=== PATIENT | male | born 1960 | race Caucasian/White ===

== ENCOUNTER 2020-09-30 09:13 | Inpatient (IN) ==
[2020-09-30] MEDS ORDERED: LACTULOSE 20 GM/30 ML ORAL.SOL PO PRN (12:08)
[2020-09-30] MEDS ORDERED: oxyCODONE HCL 5 MG TABLET PO PRN (12:08)
[2020-09-30] MEDS ORDERED: SENNOSIDES 1 TABLET PO PRN (12:08)
[2020-09-30] MEDS ORDERED: NALOXONE HCL 0.4 MG/ML VIAL IV PRN (12:08)
[2020-09-30] MEDS ORDERED: ONDANSETRON 4 MG/2 ML VIAL IV PRN (12:08)
[2020-09-30] MEDS ORDERED: HYDROmorphone 0.5 MG/0.5 ML SYRINGE IV PRN (12:08)
--- NOTE | 2020-09-30 12:09 | Internal Med History&Physical ---
HPI History of Present Illness Patient information: Note initiated : 09/30/20 at 12:08 pm Service Date, if different from initiated Date: [] Patient: Jacob Muñoz 60 y/o M admitted on 09/30/20 for choleducolithiasis. Chief Complaint: [] History of present illness: Mr. Muñoz is a 60 year old male with a history of heart failure with reduced ejection fraction, atrial fibrillation, diabetes mellitus type 2, GERD, recent laparoscopic cholecystectomy on September 18, 2020 followed several days later by recurrent abdominal pain reminiscent of biliary colic, fevers and generally feeling unwell. The patient was admitted to [facility] due to concerns of sepsis, the patient was also found to have acute pancreatitis. The patient was started on Zosyn and IV fluids. Attempts to transfer the patient to a higher level of care were unsuccessful due to the lack of bed capacity in the region. Patient was ultimately transferred to [facility] for GI intervention for concern of cholangitis. Patient arrived in stable condition. Review of systems Constitutional: Positive for fevers and chills Eyes: no vision changes or pain Cardiovascular: no chest pain, no palpitations Respiratory: no cough or dyspnea Gastrointestinal: Positive for epigastric abdominal pain, nausea Genitourinary: no dysuria or difficulty voiding Musculoskeletal: no arthralgia or myalgia Integumentary: no skin lesion or wound Neurological: no focal weakness or numbness Psychiatric: no anxiety or depression Physical exam Head: Atraumatic, normal inspection. Eyes: normal appearance, no scleral icterus. Neck: full ROM Respiratory: no respiratory distress. Cardiovascular: normal rate and rhythm, S1, S2. GI/Abdominal: Obesely distended, laparoscopy incisions appear to be healing well, good bowel sounds, mild epigastric tenderness, mild rebound tenderness Extremities: full range of motion, nontender. Neurological: CN II-XII intact, intact motor, intact sensation. Psychiatric: normal mood. Skin: warm, normal color MEDS/ALLERGIES Home Medications and Allergies Home Medications Medication Instructions Recorded Confirmed Type aspirin 81 mg PO QAM 09/30/20 09/30/20 History atorvastatin 80 mg PO QPM 09/30/20 09/30/20 History dabigatran etexilate 150 mg PO BID 09/30/20 09/30/20 History docusate sodium 200 mg PO BID 09/30/20 09/30/20 History hydrocodone-acetaminophen 5 - 325 mg PO Q4HP PRN 09/30/20 09/30/20 History metformin 500 mg PO BID 09/30/20 09/30/20 History metoprolol succinate [Toprol XL] 50 mg PO BID 09/30/20 09/30/20 History nitroglycerin [Nitrostat] 0.4 mg SUBLINGUAL QDP PRN 09/30/20 09/30/20 History omeprazole 20 mg PO DAILY 09/30/20 09/30/20 History ondansetron 4 mg PO Q6H PRN 09/30/20 09/30/20 History oxycodone 5 mg PO Q4H PRN 09/30/20 09/30/20 History promethazine 25 mg PO Q6HP PRN 09/30/20 09/30/20 History sacubitril-valsartan 49 - 51 mg PO BID 09/30/20 09/30/20 History Allergies Allergy/AdvReac Type Severity Reaction Status Date / Time No Known Drug Allergies Allergy Verified 09/30/20 10:56 EXAM Constitutional Vitals: Temp Resp BP Pulse Ox 98.7 F 16 140/77 100 09/30/20 11:34 09/30/20 11:34 09/30/20 11:34 09/30/20 11:34 A/P Narrative A/P Narrative: Assessment: 60 year old male with a history of heart failure with reduced ejection fraction, coronary artery disease status post stent, atrial fibrillation, diabetes mellitus type 2, GERD, recent laparoscopic cholecystectomy on September 18, 2020 followed several days later by fevers and recurrent abdominal pain found to have cytosis and acute pancreatitis at [facility] clinically concerning for cholangitis. The patient was unable to transfer to a higher level of care due to lack of bed capacity in the region therefore transferred to [facility] for GI consultation and intervention. #Probable cholangitis #Acute pancreatitis, likely d/t gallstones #HFrEF, stable #CAD status post stent, stable #Atrial fibrillation rate controlled and usually anticoagulated with Pradaxa -Held Pradaxa for several days prior to admission #Diabetes mellitus type 2 #Status post AICD #Obesity Plan -Zosyn 4.5 mg IV every 6 for probable cholangitis. -Follow-up outside blood cultures ([facility]). -GI consult for consideration of ERCP. -Analgesics prn. -Continue home Toprol and Entresto with holding parameters, continue atorvastatin and prilosec. -Holding home Pradaxa, aspirin, Metformin. -SSIlow -Monitor volume status, consider IV fluids with close monitoring. -Review outside records. -Serial abdominal exams,. -N.p.o. for now, low sodium diabetic diet when ok to eat. -Telemetry -Status: Full -Disposition: Home Time Spent With Patient Time: Total time spent is greater than 50% in coordination of care (as documented) at patient's floor/unit and/or counseling patient: QUALITY VTE Deep Vein Thrombosis/Pulmonary Embolism Present on Admission: No
--- NOTE | 2020-09-30 12:48 | Internal Medicine Consult Note ---
HPI Data of Consult Primary Care Provider: Neelam Nazario Consult Narrative Patient Information: Note initiated : 09/30/20 at 12:42 pm Service Date, if different from initiated Date: [] Patient: Jacob Muñoz 60 y/o M admitted on 09/30/20 for choledocholithiasis. 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 He began to have symptoms of biliary colic in August and ultimately underwent laparoscopic cholecystectomy by Dr. Galaviz at [facility] in [place], [place] 09/19/2019. I do not have that direct record to review, but apparently no IOPs were obtained. He felt better for one day post op, but then began to have recurrent attacks of biliary colic. Three days ago, he began to have worsening upper abdominal pain, fever (t 102.4) and jaundice and presented to [facility] ED, where his lipase was elevated at 1255, direct bilirubin 3.3, AST/ASLT 103/105, ALP 262 with leukocytosis 17,800. He was transferred for consideration of ERCP but has had improvement in abdominal pain since receiving Zosyn overnight. CT showed no definite biliary dilatation but US suggested a mildly dilated CBD (less than 10mm). Uncomplicated pancreatitis seen on CT. He is unable to undergo MRCP due to a history of ICD placement. He is a former smoker, having quit in 2016. He denies alcohol use. He denies any new medications.Significant other, Arabella, is at the bedside. PMH: atrial fibrillation, CHF, DM, CAD with stent, sleep apnea, hyperlipidemia. History of [place]. PSH: laprascopic cholecystectomy, ICD placement, coronary stent. cc:: CC: Kulwant Padilla MD Review of Systems All systems: reviewed and no additional remarkable complaints except as stated PFSH PFSH All Active Problems (Updated 09/30/20 @ 12:50 by PIETRO Melendez) Cholangitis (Acute) Acute pancreatitis (Acute) Medical History (Updated 09/30/20 @ 12:50 by PIETRO Melendez) Atrial fibrillation Coronary artery disease Diabetes mellitus HFrEF (heart failure with reduced ejection fraction) Obesity MEDS/ALLERGIES Home Medications and Allergies Home Medications Medication Instructions Recorded Confirmed Type aspirin 81 mg PO QAM 09/30/20 09/30/20 History atorvastatin 80 mg PO QPM 09/30/20 09/30/20 History dabigatran etexilate 150 mg PO BID 09/30/20 09/30/20 History docusate sodium 200 mg PO BID 09/30/20 09/30/20 History hydrocodone-acetaminophen 5 - 325 mg PO Q4HP PRN 09/30/20 09/30/20 History metformin 500 mg PO BID 09/30/20 09/30/20 History metoprolol succinate [Toprol XL] 50 mg PO BID 09/30/20 09/30/20 History nitroglycerin [Nitrostat] 0.4 mg SUBLINGUAL QDP PRN 09/30/20 09/30/20 History omeprazole 20 mg PO DAILY 09/30/20 09/30/20 History ondansetron 4 mg PO Q6H PRN 09/30/20 09/30/20 History oxycodone 5 mg PO Q4H PRN 09/30/20 09/30/20 History promethazine 25 mg PO Q6HP PRN 09/30/20 09/30/20 History sacubitril-valsartan 49 - 51 mg PO BID 09/30/20 09/30/20 History Allergies Allergy/AdvReac Type Severity Reaction Status Date / Time No Known Drug Allergies Allergy Verified 09/30/20 10:56 EXAM Constitutional Vitals: Temp Pulse Resp BP Pulse Ox 98.7 F 94 H 18 120/82 96 09/30/20 11:34 09/30/20 11:37 09/30/20 12:01 09/30/20 12:01 09/30/20 12:01 Head Head exam: Present atraumatic, normal inspection and normocephalic Eye Eye exam: Present scleral icterus Pupils: Present normal accommodation Neck Neck exam: Present normal inspection Respiratory Respiratory exam: Present normal respiratory exam and CTAB Cardiovascular Cardiovascular exam: Present irregular rhythm GI/Abdominal GI/Abdominal exam: Present normal bowel sounds and tenderness; Absent organomegaly Psychiatric Psychiatric exam: Present normal affect and normal mood Skin Additional comments: jaundiced A/P Assessment and plan (1) Cholangitis: Status: Acute (2) Acute pancreatitis: Status: Acute Comment: I reviewed his case with Dr. Lo. We will proceed with ERCP with stone extraction. I reviewed this in detail with the patient and his significant other, using an illustration. We discussed the risk of bleeding, perforation, pancreatitis, infection, among others. He is willing to proceed. Time Spent With Patient Time: Total time spent is greater than 50% in coordination of care (as documented) at patient's floor/unit and/or counseling patient:
[2020-09-30] MEDS: PIPERACILLIN SODIUM/TAZOBACTAM 4.5 GM in DEXTROSE 5% IN WATER 50 ML IV SCH ×3 (13:07→23:53)
[2020-09-30 13:18] LABS: Hematocrit 39.8 % (41.0-55.0); Hemoglobin 12.8 g/dL (13.5-16.5); Mean Cell Volume 92.3 fL (80.0-100.0); Mean Corpuscular HGB Conc 32.2 g/dL (31.0-36.0); Mean Platelet Volume 11.5 fL (7.4-10.4); Platelet Count 204 K/mcL (140-440); RBC 4.31 M/mcL (4.50-5.90); Red Cell Distribution Width 13.3 % (11.5-14.5); WBC 7.5 K/mcL (4.5-11.0)
[2020-09-30] MEDS ORDERED: PROPOFOL 200 MG/20 ML VIAL IV ONE (13:33)
[2020-09-30] MEDS ORDERED: NITROGLYCERIN 0.6 MG/HR PATCH TD ONE (13:35)
[2020-09-30] MEDS ORDERED: LACTATED RINGERS 1,000 ML IV SCH (13:45)
[2020-09-30 13:47] LABS: ALT/SGPT 134 U/L (<40); AST/SGOT 82 U/L (<40); Albumin 3.6 gm/dL (3.2-5.2); Albumin/Globulin Ratio 1.1 (1.0-2.3); Alkaline Phosphatase 302 U/L (39-117); Bilirubin,Total 3.7 mg/dL (0.1-1.0); Blood Urea Nitrogen 10 mg/dL (6-20); Carbon Dioxide 26 mmol/L (22-30); Chloride 101 mmol/L (96-108); Globulin 3.2 gm/dL (2.2-3.7); Glomerular Filtration Rate 81; Glucose 107 mg/dL (70-105)
[2020-09-30] MEDS: 0.9 % SODIUM CHLORIDE 10 ML SYRINGE IV SCH ×2 (14:16→22:19)
[2020-09-30] MEDS ORDERED: GENTAMICIN SULFATE 80 MG/2 ML VIAL IR ONE (15:00)
[2020-09-30] MEDS ORDERED: MIDAZOLAM 2 MG/2 ML VIAL IV ONE (15:00)
[2020-09-30 15:10] LABS: Eosinophils % (Manual) 2 % (0-7); Lymphocytes % 7 % (15-49); Monocytes % (Manual) 4 % (1-12); Platelet Estimate NORMAL (Normal); RBC Morphology NORMAL (Normal); Segmented Neutrophils % 87 % (38-78)
[2020-09-30] MEDS ORDERED: IOPAMIDOL 50 ML BOTTLE IJ ONE (15:38)
[2020-09-30] MEDS: ACETAMINOPHEN 325 MG TABLET PO PRN (20:38)
[2020-09-30] MEDS ORDERED: ATORVASTATIN 40 MG TABLET PO SCH (21:00)
[2020-09-30] MEDS: DOCUSATE SODIUM 100 MG CAPSULE PO SCH (22:18)
[2020-09-30] MEDS: METOPROLOL SUCCINATE 50 MG TAB.XL.24H PO SCH (22:18)
[2020-09-30] MEDS: SACUBITRIL VALSARTAN PO SCH (22:19)
[2020-10-01] MEDS: PIPERACILLIN SODIUM/TAZOBACTAM 4.5 GM in DEXTROSE 5% IN WATER 50 ML IV SCH ×4 (05:49→23:48)
[2020-10-01] MEDS: 0.9 % SODIUM CHLORIDE 10 ML SYRINGE IV SCH ×3 (05:49→21:16)
[2020-10-01 06:12] LABS: Basophils # (Auto) 0.03 K/mcL (0.00-0.20); Basophils % (Auto) 0.3 % (0.0-2.0); Eosinophils # (Auto) 0.02 K/mcL (0.00-0.70); Eosinophils % (Auto) 0.2 % (0.0-7.0); Hematocrit 34.1 % (41.0-55.0); Hemoglobin 11.3 g/dL (13.5-16.5); Lymphocytes # (Auto) 0.88 K/mcL (1.50-4.80); Lymphocytes % (Auto) 9.3 % (15.0-49.0); Mean Cell Volume 89.5 fL (80.0-100.0); Mean Corpuscular HGB Conc 33.1 g/dL (31.0-36.0); Mean Platelet Volume 11.4 fL (7.4-10.4); Monocytes # (Auto) 0.77 K/mcL (0.10-0.90); Monocytes % (Auto) 8.1 % (1.0-12.0); Neutrophils % (Auto) 82.1 % (38.0-78.0); Platelet Count 210 K/mcL (140-440); RBC 3.81 M/mcL (4.50-5.90); Red Cell Distribution Width 13.2 % (11.5-14.5); WBC 9.5 K/mcL (4.5-11.0)
[2020-10-01 06:24] LABS: ALT/SGPT 93 U/L (<40); AST/SGOT 49 U/L (<40); Albumin 3.1 gm/dL (3.2-5.2); Albumin/Globulin Ratio 1.1 (1.0-2.3); Alkaline Phosphatase 254 U/L (39-117); Amylase 140 U/L (28-100); Bilirubin,Total 1.9 mg/dL (0.1-1.0); Blood Urea Nitrogen 12 mg/dL (6-20); Calcium 8.5 mg/dL (8.6-10.4); Carbon Dioxide 27 mmol/L (22-30); Chloride 99 mmol/L (96-108); Globulin 2.7 gm/dL (2.2-3.7); Glomerular Filtration Rate 72; Glucose 110 mg/dL (70-105)
[2020-10-01] MEDS ORDERED: OMEPRAZOLE 20 MG CAPSULE PO SCH (07:30)
[2020-10-01] MEDS: ACETAMINOPHEN 325 MG TABLET PO PRN (07:46)
--- NOTE | 2020-10-01 08:34 | ERCP Procedure Note ---
ERCP Procedure Note Procedure Information Patient information: Note initiated : 10/01/20 at 8:32 am Service Date: 09/30/20 Patient: Jacob Muñoz 60 y/o M admitted on 09/30/20 for Choledocholithiasis. Pre-op diagnosis general: Query common bile duct stone. Post-op diagnosis general: Passed common bile duct stone. Procedure: ERCP Procedure narrative: The procedures, alternatives and risks were discussed with the patient and the patient's questions were answered. With endoscopist-administered intravenous sedation, the Olympus side viewing operating duodenoscope was introduced into the esophagus and advanced to the second part of the duodenum without difficulty. The ampulla of Vater was visualized and the bile duct was selectively cannulated taking care to avoid the pancreatic duct and cholangiogram obtained. The bile duct was normal. The bile duct was swept with a balloon. No stones were seen. The scope was withdrawn. Assessment: Passed common bile duct stone.
[2020-10-01] MEDS: METOPROLOL SUCCINATE 50 MG TAB.XL.24H PO SCH ×2 (09:01→21:15)
[2020-10-01] MEDS: DOCUSATE SODIUM 100 MG CAPSULE PO SCH ×2 (09:02→21:16)
[2020-10-01] MEDS ORDERED: DEXTROSE 50% 50 ML VIAL IV PRN ×3 (09:57→11:59)
[2020-10-01] MEDS ORDERED: DEXTROSE 31 GM ORAL.SUSP PO PRN ×3 (09:57→11:59)
[2020-10-01] MEDS: SACUBITRIL VALSARTAN PO SCH ×2 (10:11→21:21)
[2020-10-01] MEDS ORDERED: SENNOSIDES 1 TABLET PO PRN ×2 (10:37→11:59)
[2020-10-01] MEDS ORDERED: ACETAMINOPHEN 325 MG TABLET PO PRN ×2 (10:37→11:59)
[2020-10-01] MEDS ORDERED: NALOXONE HCL 0.4 MG/ML VIAL IV PRN ×2 (10:37→11:59)
[2020-10-01] MEDS ORDERED: HYDROmorphone 0.5 MG/0.5 ML SYRINGE IV PRN ×2 (10:37→11:59)
[2020-10-01] MEDS ORDERED: ONDANSETRON 4 MG/2 ML VIAL IV PRN ×2 (10:37→11:59)
[2020-10-01] MEDS ORDERED: oxyCODONE HCL 5 MG TABLET PO PRN ×2 (10:37→11:59)
[2020-10-01] MEDS ORDERED: LACTULOSE 20 GM/30 ML ORAL.SOL PO PRN ×2 (10:37→11:59)
[2020-10-01] MEDS ORDERED: INSULIN LISPRO 1 UNIT/0.01 ML UNIT SQ SCH ×2 (11:30)
--- NOTE | 2020-10-01 11:49 | Internal Med Progress Note ---
SUBJECTIVE Subjective Patient information: Note initiated : 10/01/20 at 11:46 am Service Date, if different from initiated Date: [] Patient: Jacob Muñoz 60 y/o M admitted on 09/30/20 for choleducolithiasis. Chief Complaint: [] Interval history: Mr. Muñoz is a 60 year old male with a history of heart failure with reduced ejection fraction, atrial fibrillation, diabetes mellitus type 2, GERD, recent laparoscopic cholecystectomy on September 18, 2020 followed several days later by recurrent abdominal pain reminiscent of biliary colic, fevers and generally feeling unwell. The patient was admitted to [facility] due to concerns of sepsis, the patient was also found to have acute pancreatitis. The patient was started on Zosyn and IV fluids. Attempts to transfer the patient to a higher level of care were unsuccessful due to the lack of bed capacity in the region. Patient was ultimately transferred to [facility] for GI intervention for concern of cholangitis. Patient arrived in stable condition. 10/01 ERCP yesterday-no stone seen. Fever yesterday evening after ERCP-blood cultures drawn. Continues on Zosyn, feeling much better, abdominal pain has improved considerably, advanced to full liquid diet. Resume home Dabigatran. Review of systems: chills and fever yesterday, abdominal pain has resolved Physical exam Head: Atraumatic, normal inspection. Eyes: normal appearance, no scleral icterus. Neck: full ROM Respiratory: no respiratory distress. Cardiovascular: normal rate and rhythm, S1, S2. GI/Abdominal: Obesely distended, laparoscopy incisions appear to be healing well, good bowel sounds, epigastric tenderness resolved Extremities: full range of motion, nontender. Neurological: CN II-XII intact, intact motor, intact sensation. Psychiatric: normal mood. Skin: warm, normal color Constitutional Vitals: Vital Signs Temp Pulse Resp BP Pulse Ox 97.9 F 90 17 127/79 99 10/01/20 08:01 10/01/20 08:01 10/01/20 08:01 10/01/20 08:01 10/01/20 08:01 Period Temp Pulse Resp BP Sys/Allen Pulse Ox Last 24 Hr 97.8 F-103.3 F 42-111 11-30 66-162/58-132 89-100 Intake and Output 09/30/20 10/01/20 10/01/20 21:59 05:59 13:59 Intake Total 725 570 290 Output Total 550 700 Balance 175 -130 290 Weight 104.19 kg Intake & Output: Intake & Output 09/30/20 10/01/20 10/01/20 21:59 05:59 13:59 Intake Total 725 570 290 Output Total 550 700 Balance 175 -130 290 Weight 104.19 kg Intake: IV 525 50 50 Lactated Ringers 1,000 ml @ 125 425 mls/hr IV .Q8H EVELYNE Rx#: [id number] Zosyn 4.5 gm In Dextrose 5% in 100 50 50 Water 50 ml @ 100 mls/hr IV Q6H EVELYNE Rx#:[id number] Oral 200 520 240 Output: Void Amount 550 700 Other: Meal Breakfast Percent of Meal Consumed 100% Urine Appearance Clear Clear Urine Color Dark Nati Tea Colored # Bowel Movements 1 OBJ DATA Labs CBC & Chem 7: 10/01/20 05:07 10/01/20 05:07 Labs: Abnormal Lab Results 10/01/20 10/01/20 09/30/20 05:07 05:07 12:40 RBC 3.81 L Hgb 11.3 L Hct 34.1 L MPV 11.4 H Neut % (Auto) 82.1 H Lymph % (Auto) 9.3 L Lymph # (Auto) 0.88 L Seg Neutrophils % Lymphocytes % Glucose 110 H 107 H Calcium 8.5 L Total Bilirubin 1.9 H 3.7 H AST 49 H 82 H ALT 93 H 134 H Alkaline Phosphatase 254 H 302 H Total Protein 5.8 L Albumin 3.1 L Amylase 140 H Lipase 1108 H 09/30/20 12:40 RBC 4.31 L Hgb 12.8 L Hct 39.8 L MPV 11.5 H Neut % (Auto) Lymph % (Auto) Lymph # (Auto) Seg Neutrophils % 87 H Lymphocytes % 7 L Glucose Calcium Total Bilirubin AST ALT Alkaline Phosphatase Total Protein Albumin Amylase Lipase Meds: Medications Acetaminophen (Acetaminophen 325 Mg Tablet) 650 mg PO Q6HP PRN; Protocol PRN Reason: Per Pain Protocol/Fever > 101 Atorvastatin Calcium (Atorvastatin 40 Mg Tablet) 80 mg PO HS EVELYNE Dextrose (Dextrose 50% 50 Ml Vial) 0 ml IV UD PRN PRN Reason: Hypoglycemia Diagnostic Test (Pha) (Accu-Chek 1 Each Strip) 1 each FS ACHS EVELYNE Last Admin: 10/01/20 11:42 Dose: 1 each Documented by: Docusate Sodium (Docusate Sodium 100 Mg Capsule) 100 mg PO BID [facility] Glucose (Dextrose 31 Gm Oral.Susp) 15 gm PO PRN PRN PRN Reason: Hypoglycemia Hydromorphone HCl (Hydromorphone 0.5 Mg/0.5 Ml Syringe) 0.5 mg IV Q2HP PRN; Protocol PRN Reason: Per Pain Protocol Piperacillin Sod/Tazobactam (Sod 4.5 gm/ Dextrose) 50 mls @ 100 mls/hr IV Q6H [facility]; Protocol Insulin Human Lispro (Insulin Lispro 1 Unit/0.01 Ml Unit) 0 unit SQ ACHS [facility]; Protocol Last Admin: 10/01/20 11:42 Dose: Not Given Documented by: Lactulose (Lactulose 20 Gm/30 Ml Oral.Nickie) 10 gm PO DAILYP PRN PRN Reason: Constipation Metoprolol Succinate (Metoprolol Succinate 50 Mg Tab.Xl.24h) 50 mg PO BID [facility] Naloxone HCl (Naloxone Hcl 0.4 Mg/Ml Vial) 0.1 mg IV Q2MIN PRN PRN Reason: Opiate Reversal Omeprazole (Omeprazole 20 Mg Capsule) 20 mg PO ACB [facility] Ondansetron HCl (Ondansetron 4 Mg/2 Ml Vial) 4 mg IV Q4HP PRN; Protocol PRN Reason: Nausea And Vomiting Oxycodone HCl (Oxycodone Hcl 5 Mg Tablet) 5 mg PO Q4HP PRN; Protocol PRN Reason: Pain Sacubitril-Valsartan [Entresto] 49/51 Mg Tab 1 dose PO BID [facility] Senna (Sennosides 1 Tablet) 2 tab PO HSP PRN PRN Reason: Constipation Sodium Chloride (0.9 % Sodium Chloride 10 Ml Syringe) 10 ml IV Q8 [facility] A/P Narrative A/P Narrative: Assessment: 60 year old male with a history of heart failure with reduced ejection fraction, coronary artery disease status post stent, atrial fibrillation, diabetes mellitus type 2, GERD, recent laparoscopic cholecystectomy on September 18, 2020 followed several days later by fevers and recurrent abdominal pain found to have cytosis and acute pancreatitis at [facility] clinically concerning for cholangitis. The patient was unable to transfer to a higher level of care due to lack of bed capacity in the region therefore transferred to [facility] for GI consultation and intervention. #Probable cholangitis, resolving -ERCP did not show biliary stone/sludge #Resolveing acute pancreatitis, likely d/t gallstones #HFrEF, stable #CAD status post stent, stable #Atrial fibrillation rate controlled- on Pradaxa #Diabetes mellitus type 2 #Status post AICD #Obesity Plan -Transfer to medical/surgical floor. -Zosyn 4.5 mg IV every 6, if not fevers overnight could deescalate to oral antibiotic. -Follow-up blood cultures. Outside blood cultures ([facility])- NGTD. -Trend LFTs. -Analgesics prn. -Continue home Toprol and Entresto with holding parameters, continue atorvastatin and prilosec. -Holding home Pradaxa, aspirin, Metformin. -SSIlow -Serial abdominal exams,. -Full liquid diet, advance if tolerated. -Telemetry -Status: Full -Disposition: Home in 1-2 days, complete 5 days abx post ERCP. Time Spent With Patient Time: Total time spent is greater than 50% in coordination of care (as documented) at patient's floor/unit and/or counseling patient: QUALITY VTE Deep Vein Thrombosis/Pulmonary Embolism Present on Admission: No
[2020-10-01] MEDS ORDERED: PIPERACILLIN SODIUM/TAZOBACTAM 4.5 GM in DEXTROSE 5% IN WATER 50 ML IV SCH (12:00)
[2020-10-01] MEDS ORDERED: 0.9 % SODIUM CHLORIDE 10 ML SYRINGE IV SCH (14:00)
[2020-10-01] MEDS: INSULIN LISPRO 1 UNIT/0.01 ML UNIT SQ SCH ×2 (16:33→21:15)
[2020-10-01] MEDS ORDERED: METOPROLOL SUCCINATE 50 MG TAB.XL.24H PO SCH (21:00)
[2020-10-01] MEDS ORDERED: SACUBITRIL VALSARTAN PO SCH (21:00)
[2020-10-01] MEDS ORDERED: ATORVASTATIN 40 MG TABLET PO SCH ×2 (21:00)
[2020-10-01] MEDS ORDERED: DOCUSATE SODIUM 100 MG CAPSULE PO SCH (21:00)
[2020-10-01] MEDS: DABIGATRAN ETEXILATE MESYLATE 150 MG CAPSULE PO SCH (21:16)
[2020-10-02] MEDS: 0.9 % SODIUM CHLORIDE 10 ML SYRINGE IV SCH ×2 (05:53→14:56)
[2020-10-02] MEDS: PIPERACILLIN SODIUM/TAZOBACTAM 4.5 GM in DEXTROSE 5% IN WATER 50 ML IV SCH (05:53)
[2020-10-02] MEDS ORDERED: OMEPRAZOLE 20 MG CAPSULE PO SCH ×2 (07:30)
--- NOTE | 2020-10-02 07:40 | Internal Med Progress Note ---
SUBJECTIVE Subjective Patient information: Note initiated : 10/02/20 at 7:37 am Service Date, if different from initiated Date: [] Patient: Jacob Muñoz 60 y/o M admitted on 09/30/20 for choleducolithiasis. Chief Complaint: [] Interval history: Mr. Muñoz is a 60 year old male with a history of heart failure with reduced ejection fraction, atrial fibrillation, diabetes mellitus type 2, GERD, recent laparoscopic cholecystectomy on September 18, 2020 followed several days later by recurrent abdominal pain reminiscent of biliary colic, fevers and generally feeling unwell. The patient was admitted to [facility] due to concerns of sepsis, the patient was also found to have acute pancreatitis. The patient was started on Zosyn and IV fluids. Attempts to transfer the patient to a higher level of care were unsuccessful due to the lack of bed capacity in the region. Patient was ultimately transferred to [facility] for GI intervention for concern of cholangitis. Patient arrived in stable condition. 10/01 ERCP yesterday-no stone seen. Fever yesterday evening after ERCP-blood cultures drawn. Continues on Zosyn, feeling much better, abdominal pain has improved considerably, advanced to full liquid diet. Resume home Dabigatran. Called [facility]-blood culture showing no growth to date. 10/02 Afebrile overnight. Feeling more bloated after eating sherbert, advised on low fat diet. Continue full liquid diet today. Deescalated antibiotics from Zosyn to Ceftriaxone and Flagyl. Review of systems: increased abdominal bloating Physical exam Head: Atraumatic, normal inspection. Eyes: normal appearance, no scleral icterus. Neck: full ROM Respiratory: no respiratory distress. Cardiovascular: normal rate and rhythm, S1, S2. GI/Abdominal: Obesely distended, laparoscopy incisions appear to be healing well, good bowel sounds, epigastric tenderness resolved Extremities: full range of motion, nontender. Neurological: CN II-XII intact, intact motor, intact sensation. Psychiatric: normal mood. Skin: warm, normal color Constitutional Vitals: Vital Signs Temp Pulse Resp BP Pulse Ox 98.8 F 97 H 20 129/81 96 10/02/20 04:17 10/02/20 04:17 10/02/20 04:17 10/02/20 04:17 10/02/20 04:17 Period Temp Pulse Resp BP Sys/Allen Pulse Ox Last 24 Hr 97.5 F-99.4 F 79-97 14- 112-130/74-85 93-99 Intake and Output 10/01/20 10/02/20 10/02/20 21:59 05:59 13:59 Intake Total 50 570 50 Output Total 850 575 Balance -800 -5 50 Weight 106.186 kg Intake & Output: Intake & Output 10/01/20 10/02/20 10/02/20 21:59 05:59 13:59 Intake Total 50 570 50 Output Total 850 575 Balance -800 -5 50 Weight 106.186 kg Intake: IV 50 50 50 Zosyn 4.5 gm In Dextrose 5% in 50 50 50 Water 50 ml @ 100 mls/hr IV Q6H EVELYNE Rx#:[id number] Oral 520 Output: Void Amount 850 575 Other: Meal Dinner Urine Appearance Clear Clear Urine Color Dark Yellow Bright Yellow Urine Odor Normal # Voids 1 # Bowel Movements 1 OBJ DATA Labs CBC & Chem 7: 10/01/20 05:07 10/01/20 05:07 Labs: Abnormal Lab Results 10/01/20 10/01/20 09/30/20 05:07 05:07 12:40 RBC 3.81 L Hgb 11.3 L Hct 34.1 L MPV 11.4 H Neut % (Auto) 82.1 H Lymph % (Auto) 9.3 L Lymph # (Auto) 0.88 L Seg Neutrophils % Lymphocytes % Glucose 110 H 107 H Calcium 8.5 L Total Bilirubin 1.9 H 3.7 H AST 49 H 82 H ALT 93 H 134 H Alkaline Phosphatase 254 H 302 H Total Protein 5.8 L Albumin 3.1 L Amylase 140 H Lipase 1108 H 09/30/20 12:40 RBC 4.31 L Hgb 12.8 L Hct 39.8 L MPV 11.5 H Neut % (Auto) Lymph % (Auto) Lymph # (Auto) Seg Neutrophils % 87 H Lymphocytes % 7 L Glucose Calcium Total Bilirubin AST ALT Alkaline Phosphatase Total Protein Albumin Amylase Lipase Meds: Medications Acetaminophen (Acetaminophen 325 Mg Tablet) 650 mg PO Q6HP PRN; Protocol PRN Reason: Per Pain Protocol/Fever > 101 Aspirin (Aspirin 81 Mg Tab.Chew) 81 mg PO DAILY EVELYNE Atorvastatin Calcium (Atorvastatin 40 Mg Tablet) 80 mg PO HS EVELYNE Last Admin: 10/01/20 21:15 Dose: 80 mg Documented by: Dabigatran (Dabigatran Etexilate Mesylate 150 Mg Capsule) 150 mg PO BID [facility] Last Admin: 10/01/20 21:16 Dose: 150 mg Documented by: Dextrose (Dextrose 50% 50 Ml Vial) 0 ml IV UD PRN PRN Reason: Hypoglycemia Diagnostic Test (Pha) (Accu-Chek 1 Each Strip) 1 each FS [facility] Last Admin: 10/01/20 21:15 Dose: 1 each Documented by: Docusate Sodium (Docusate Sodium 100 Mg Capsule) 100 mg PO BID [facility] Last Admin: 10/01/20 21:16 Dose: Not Given Documented by: Glucose (Dextrose 31 Gm Oral.Susp) 15 gm PO PRN PRN PRN Reason: Hypoglycemia Hydromorphone HCl (Hydromorphone 0.5 Mg/0.5 Ml Syringe) 0.5 mg IV Q2HP PRN; Protocol PRN Reason: Per Pain Protocol Ceftriaxone Sodium 2 gm/ (Dextrose) 50 mls @ 100 mls/hr IV Q24H [facility]; Protocol Metronidazole (Flagyl) 500 mg in 100 mls @ 100 mls/hr IV Q8H [facility]; Protocol Insulin Human Lispro (Insulin Lispro 1 Unit/0.01 Ml Unit) 0 unit SQ [facility]; Protocol Last Admin: 10/01/20 21:15 Dose: Not Given Documented by: Lactulose (Lactulose 20 Gm/30 Ml Oral.Nickie) 10 gm PO DAILYP PRN PRN Reason: Constipation Metoprolol Succinate (Metoprolol Succinate 50 Mg Tab.Xl.24h) 50 mg PO BID [facility] Last Admin: 10/01/20 21:15 Dose: 50 mg Documented by: Naloxone HCl (Naloxone Hcl 0.4 Mg/Ml Vial) 0.1 mg IV Q2MIN PRN PRN Reason: Opiate Reversal Omeprazole (Omeprazole 20 Mg Capsule) 20 mg PO ACB [facility] Ondansetron HCl (Ondansetron 4 Mg/2 Ml Vial) 4 mg IV Q4HP PRN; Protocol PRN Reason: Nausea And Vomiting Oxycodone HCl (Oxycodone Hcl 5 Mg Tablet) 5 mg PO Q4HP PRN; Protocol PRN Reason: Pain Sacubitril-Valsartan [Entresto] 49/51 Mg Tab 1 dose PO BID [facility] Last Admin: 10/01/20 21:21 Dose: 1 dose Documented by: Senna (Sennosides 1 Tablet) 2 tab PO HSP PRN PRN Reason: Constipation Sodium Chloride (0.9 % Sodium Chloride 10 Ml Syringe) 10 ml IV Q8 [facility] Last Admin: 10/02/20 05:53 Dose: 10 ml Documented by: A/P Narrative A/P Narrative: Assessment: 60 year old male with a history of heart failure with reduced ejection fraction, coronary artery disease status post stent, atrial fibrillation, diabetes mellitus type 2, GERD, recent laparoscopic cholecystectomy on September 18, 2020 followed several days later by fevers and recurrent abdominal pain found to have cytosis and acute pancreatitis at [facility] clinically concerning for cholangitis. The patient was also found to haev acute pancreatitis. The patient was unable to transfer to a higher level of care due to lack of bed capacity in the region therefore transferred to [facility] for GI consultation and intervention. An ERCP on 09/30/20 did not show any stones. #Probable cholangitis, resolving -ERCP did not show biliary stone/sludge #Resolving acute pancreatitis, likely d/t gallstones #HFrEF, stable #CAD status post stent, stable #Atrial fibrillation rate controlled- on Pradaxa #Diabetes mellitus type 2 #Status post AICD #Obesity Plan -Ceftriaxone and Flagyl. -Follow-up blood cultures. Outside blood cultures ([facility])- NGTD. -Trend LFTs. -Analgesics prn. -Continue home Toprol and Entresto with holding parameters, continue atorvastatin and prilosec. -Continue Pradaxa and aspirin. -Holding home Metformin. -lantus and SSIlow -Serial abdominal exams,. -Full liquid diet. -Telemetry -Status: Full -Disposition: Home in 1-2 days, complete 5 days of antibiotics post ERCP. Time Spent With Patient Time: Total time spent is greater than 50% in coordination of care (as documented) at patient's floor/unit and/or counseling patient: [facility] VTE Deep Vein Thrombosis/Pulmonary Embolism Present on Admission: No
[2020-10-02 07:51] LABS: ALT/SGPT 69 U/L (<40); AST/SGOT 36 U/L (<40); Alkaline Phosphatase 228 U/L (39-117); Bilirubin,Total 1.4 mg/dL (0.1-1.0); Blood Urea Nitrogen 8 mg/dL (6-20); Calcium 8.7 mg/dL (8.6-10.4); Carbon Dioxide 23 mmol/L (22-30); Chloride 98 mmol/L (96-108); Globulin 3.1 gm/dL (2.2-3.7); Glomerular Filtration Rate 92; Glucose 116 mg/dL (70-105)
[2020-10-02] MEDS: metroNIDAZOLE 500 MG/100 ML BAG IV SCH ×2 (07:51→14:55)
[2020-10-02] MEDS: INSULIN LISPRO 1 UNIT/0.01 ML UNIT SQ SCH ×2 (07:54→12:00)
[2020-10-02] MEDS: METOPROLOL SUCCINATE 50 MG TAB.XL.24H PO SCH (08:48)
[2020-10-02] MEDS: DOCUSATE SODIUM 100 MG CAPSULE PO SCH (08:48)
[2020-10-02] MEDS: DABIGATRAN ETEXILATE MESYLATE 150 MG CAPSULE PO SCH (08:48)
[2020-10-02] MEDS: SACUBITRIL VALSARTAN PO SCH (08:48)
[2020-10-02] MEDS ORDERED: cefTRIAXone 2 GM in DEXTROSE 5% IN WATER 50 ML IV SCH (09:00)
[2020-10-02] MEDS ORDERED: INSULIN GLARGINE, HUMAN 1 UNIT/0.01 ML SQ SCH (09:00)
[2020-10-02] MEDS ORDERED: ASPIRIN 81 MG TAB.CHEW PO SCH (09:00)
--- NOTE | 2020-10-02 10:25 | XRay Report ---
CLINICAL INFORMATION: Choledocholithiasis COMPARISON: None. FINDINGS: Common bile duct was successfully cannulated injected by Dr. Salgado. The visualized intrahepatic, common hepatic common bile ducts are normal in contour and caliber. No filling defects suggest to suggest retained stone. IMPRESSION: Normal exam Interpreted and Authenticated by: Solis Machuca 10/02/20
--- NOTE | 2020-10-02 13:46 | Discharge Summary ---
Discharge Provider Provider Patient information: Note initiated : 10/02/20 at 1:45 pm Service Date, if different from initiated Date: [] Patient: Jacob Muñoz 60 y/o M admitted on 09/30/20 for choleducolithiasis. Chief Complaint: [] Date of admission: 09/30/20 11:18 Discharge date: 10/02/20 Primary care physician: Neelam Nazario Consults: 09/30/20 14:33 Consult to Physician [CONS] Routine Comment: Consulting Provider: Bryan Lo Reason For Exam: Physician to Consult Discharge Meds Discharge Medications Home Medications aspirin 81 mg PO QAM 09/30/20 [History Confirmed 09/30/20 Last Taken 09/28/20 09:00] atorvastatin 80 mg PO QPM 09/30/20 [History Confirmed 09/30/20 Last Taken 09/28/20 20:00] dabigatran etexilate 150 mg PO BID 09/30/20 [History Confirmed 09/30/20 Last Taken 09/28/20 20:00] docusate sodium 200 mg PO BID 09/30/20 [History Confirmed 09/30/20 Last Taken 09/29/20 02:00] hydrocodone-acetaminophen 5 - 325 mg PO Q4HP PRN 09/30/20 [History Confirmed 09/30/20 Last Taken 09/23/20 09:00] metformin 500 mg PO BID 09/30/20 [History Confirmed 09/30/20 Last Taken 09/28/20 20:00] metoprolol succinate [Toprol XL] 50 mg PO BID 09/30/20 [History Confirmed 09/30/20 Last Taken 09/30/20 09:00] nitroglycerin [Nitrostat] 0.4 mg SUBLINGUAL QDP PRN 09/30/20 [History Confirmed 09/30/20 Last Taken 08/28/20 20:00] omeprazole 20 mg PO DAILY 09/30/20 [History Confirmed 09/30/20 Last Taken 09/28/20 08:00] ondansetron 4 mg PO Q6H PRN 09/30/20 [History Confirmed 09/30/20 Last Taken 09/29/20 09:00] oxycodone 5 mg PO Q4H PRN 09/30/20 [History Confirmed 09/30/20 Last Taken 09/29/20 02:00] promethazine 25 mg PO Q6HP PRN 09/30/20 [History Confirmed 09/30/20 Last Taken Unknown] sacubitril-valsartan 49 - 51 mg PO BID 09/30/20 [History Confirmed 09/30/20 Last Taken 09/30/20 09:00] ciprofloxacin HCl 500 mg PO BID #8 tab 10/02/20 [Rx Last Taken Unknown] metronidazole 500 mg PO Q8H #12 tab 10/02/20 [Rx Last Taken Unknown] COURSE Hospital Course Hospital course: Interval history: Mr. Muñoz is a 60 year old male with a history of heart failure with reduced ejection fraction, atrial fibrillation, diabetes mellitus type 2, GERD, recent laparoscopic cholecystectomy on September 18, 2020 followed several days later by recurrent abdominal pain reminiscent of biliary colic, fevers and generally feeling unwell. The patient was admitted to [facility] due to concerns of sepsis, the patient was also found to have acute pancreatitis. The patient was started on Zosyn and IV fluids. Attempts to transfer the patient to a higher level of care were unsuccessful due to the lack of bed capacity in the region. Patient was ultimately transferred to [facility] for GI intervention for concern of cholangitis. Patient arrived in stable condition. 10/01 ERCP yesterday-no stone seen. Fever yesterday evening after ERCP-blood cultures drawn. Continues on Zosyn, feeling much better, abdominal pain has improved considerably, advanced to full liquid diet. Resume home Dabigatran. Called [facility]-blood culture showing no growth to date. 10/02 Afebrile overnight. Feeling more bloated after eating sherbert, advised on low fat diet. Continue full liquid diet today. Deescalated antibiotics from Zosyn to Ceftriaxone and Flagyl. *Patient is tolerating solid diet well and wants to go home A: #Probable cholangitis, resolving -ERCP did not show biliary stone/sludge #Resolving acute pancreatitis, likely d/t gallstones #HFrEF, stable #CAD status post stent, stable #Atrial fibrillation rate controlled- on Pradaxa #Diabetes mellitus type 2 #Status post AICD #Obesity Discharge diagnosis: Acute cholangitis pancreatitis Secondary discharge diagnosis: History of heart failure CAD A. fib diabetes AICD obesity Time Spent with Patient Time attestation: Total time spent providing and/or coordinating discharge services: Time spent: Greater than 30 minutes EXAM Constitutional Vitals: Temp Pulse Resp BP Pulse Ox 97.9 F 88 20 143/88 96 10/02/20 12:00 10/02/20 12:00 10/02/20 12:00 10/02/20 12:00 10/02/20 12:00 Discharge Data Data Completed and Pending Labs on day of discharge: Labs from last 24 hours 10/02/20 05:45 Sodium 133 Potassium 3.5 Chloride 98 Carbon Dioxide 23 Anion Gap 12.0 BUN 8 Creatinine 0.9 GFR Calculation 92 Glucose 116 H Calcium 8.7 Total Bilirubin 1.4 H AST 36 ALT 69 H Alkaline Phosphatase 228 H Total Protein 6.1 Albumin 3.0 L Globulin 3.1 Albumin/Globulin Ratio 1.0 Preliminary micro results at discharge 09/30/20 21:28 Blood Culture - Preliminary Blood 09/30/20 21:16 Blood Culture - Preliminary Blood Discharge Plan Patient/Caregiver Discharge Instructions Activity: increase activity as tolerated Diet: Consistent Carbohydrate Prescriptions: New metronidazole 500 mg tablet 500 mg PO Q8H Qty: 12 RF: 0 ciprofloxacin HCl 500 mg tablet 500 mg PO BID Qty: 8 RF: 0 Continued metformin 500 mg Tablet Extended Release 24hr 500 mg PO BID RF: 0 metoprolol succinate [Toprol XL] 50 mg Tablet Extended Release 24 Hr 50 mg PO BID RF: 0 nitroglycerin [Nitrostat] 0.4 mg Tablet, Sublingual 0.4 mg sublingual QDP PRN (Reason: Chest Pain) RF: 0 aspirin 81 mg Tablet 81 mg PO QAM RF: 0 ondansetron 4 mg Tablet,Disintegrating 4 mg PO Q6H PRN (Reason: Nausea And Vomiting) RF: 0 oxycodone 5 mg Tablet 5 mg PO Q4H PRN (Reason: Pain) RF: 0 omeprazole 20 mg Tablet,Delayed Release (Dr/Ec) 20 mg PO DAILY RF: 0 atorvastatin 80 mg PO QPM RF: 0 dabigatran etexilate 150 mg PO BID RF: 0 docusate sodium 200 mg PO BID RF: 0 hydrocodone-acetaminophen 5 - 325 mg PO Q4HP PRN (Reason: Pain) RF: 0 promethazine 25 mg PO Q6HP PRN (Reason: Nausea And Vomiting) RF: 0 sacubitril-valsartan 49 - 51 mg PO BID RF: 0 Follow Up Plan Patient Disposition: Home, Self-Care Prognosis: Fair Overall status at discharge: patient is progressing back to baseline Discharge Orders: Discharge Order (Routine); Ordered 10/02/20 [facility]/Pulmonary Embolism Present on Admission: No
== END 2020-10-02 16:57 | disposition home or self-care (01) | DRG 444 ==
LOC: ICU 11:18 → MEDSUR 10-01 13:33
PROVIDERS: ADMIT Internal Medicine; ATTEND Internal Medicine